=== PATIENT | male | born 1950 | race Caucasian/White ===

== ENCOUNTER 2016-12-26 10:19 | Day surgery (SDC) | payer BC ==
[~2016-12-26] VITALS: Ht 180.3 cm; Wt 99.2 kg
[~2016-12-26 10:19] MED LIST: ASPIRIN ADULT L81 M1 PO; CIALIS5 MG PO; SIMVASTATIN20 MG PO
--- NOTE | 2016-12-26 10:43 | NUR ---
PREOP INSTRUCTIONS GIVEN TO PATIENT. QUESTIONS ANSWERED. PATIENT VERBALIZES UNDERSTANDING. CONSENT CONFIRMED. PATIENT IS RESTING COMFORTABLY. KB
--- NOTE | 2016-12-26 12:05 | Provider's Discharge Care Plan ---
Problem, Goal, Plan Problem List 1. Status post colonoscopy Goals: Screening Instructions: Follow up as needed, Take meds as directed, high fiber diet
--- NOTE | 2016-12-26 12:05 | Provider's Discharge Care Plan ---
Problem, Goal, Plan Problem List 1. Status post colonoscopy Goals: Screening Instructions: Follow up as needed, Take meds as directed, high fiber diet
--- NOTE | 2016-12-26 12:37 | Operative Report ---
Operative Report Date of Surgery: 12/26/16 Preoperate Diagnosis: history of colon polyps Postoperative Diagnosis: sigmoid diverticulosis Surgeon: Christiano Joy MD [employer] Surgeon: none Procedure Performed: Colonoscopy Anesthesia: Total intravenous anesthesia Indications: 66-year-old male with history of colon polyps. Asymptomatic. Last colonoscopy 10 years ago. FINDINGS: Normal appearing cecum, ascending, transverse colon. Patient was noted to have sigmoid diverticulosis. The rectal vault was normal. Surgical Technique: Patient was brought to the operating room. Patient was placed in the left lateral decubitus position. Patient was administered TIVA by anesthesia. Once anesthesia had taken effect digital rectal examination was performed. No masses or stenosis was appreciated. This was then followed by the passage of a fiberoptic video flexible Olympus colonoscope. The scope was then passed without difficulty and the cecum was visualized. The cecum was identified by anatomical landmarks and anterior abdominal wall ballottement. On withdrawing the scope the aforementioned findings were noted. The scope was then retroflexed and a good view of the rectal wall obtained. The scope was then completely withdrawn. Patient tolerated procedure well. Patient was transferred to the recovery room in stable condition. There were no intraoperative or anesthetic complications.
--- NOTE | 2016-12-26 12:48 | NUR ---
PT RECEIVED TO PACU EASILY AROUSABLE AND COMFORTABLE. PT NOW AWAKE AND CONVERSING. RESTING ON HIS LEFT SIDE. VSS.
--- NOTE | 2016-12-26 13:07 | NUR ---
PT AWAKE NAD COMFORTABLE. DR HAMMER SPOKE WITH PT POST-OP REGARDING EXAM FINDINGS, QUESTIONS ANSWERED. VSS. REPOSITIONED FOR COMFORT.
--- NOTE | 2016-12-26 13:35 | NUR ---
PATIENT RETURNED TO THE FLOOR AWAKE AND TALKING. VSS. PO OFFERED. KB
[2016-12-26 14:04] VITALS: BP 109/77
--- NOTE | 2016-12-26 14:34 | NUR ---
PATIENT TOLERATING PO WELL. UP IN ROOM INDEPENDENTLY. DISCHARGE INSTRUCTIONS GIVEN TO PATIENT. QUESTIONS ANSWERED. PATIENT VERBALIZES UNDERSTANDING. WILL DISCHARGE HOME WITH HIS . KB
== END 2016-12-26 14:24 | disposition home or self-care (01) ==
LOC: OR SRH 10:19 → SCU SRH 10:19 → OR SRH 11:45
PROVIDERS: Specialist
PROC: 0DJD8ZZ Inspection of Lower Intestinal Tract, Via Natural or Artificial Opening Endoscopic (ICD-10-PCS; principal; 2016-12-26 11:45)
DX: Z12.11 Encounter for screening for malignant neoplasm of colon (principal); K57.30 Diverticulosis of large intestine without perforation or abscess without bleeding; Z86.010 Personal history of colon polyps
CPT/HCPCS: 29229; 29240; 50004; 60001; 83526